=== PATIENT | female | born 1950 | race Caucasian/White ===

== ENCOUNTER 2016-07-26 14:52 | Emergency (ER) | payer MEDICARE ==
[~2016-07-26 14:52] MED LIST: CYCLOBENZAPRINE10 MG PO; CYMBALTA30 MG PO; HYDROCODONE-APA1 TAB PO; PAXIL20 MG PO
[2016-07-26 15:46] LABS: BASOPHILS 0.9 % (0.0-2.0); EOSINOPHILS 3.7 % (0-7); HEMATOCRIT 46.7 % (36.0-48.0); IMMATURE GRANULOCYTES 0.2 % (0-5); MCH 34.2 pg (26.0-34.0); MCHC 34.3 g/dL (31.0-37.0); MCV 99.8 fL (80.0-100.0); MONOCYTES 5.7 % (2-11); NEUTROPHILS 52.5 % (40-80); RBC 4.68 10x6/uL (4.00-5.40); RDW 13.8 % (11.5-14.5); WBC 8.1 10x3/uL (4.8-10.8)
[2016-07-26 16:06] LABS: PLATELET COUNT 245 10x3/uL (130-400)
[2016-07-26 16:26] LABS: HCG SERUM NEGATIVE (NEGATIVE)
[2016-07-26 16:31] LABS: ALBUMIN 3.9 g/dL (3.4-5.0); ANION GAP 19.2 mmol/L (8-16); BILIRUBIN - TOTAL 0.45 mg/dL (0.2-1.3); CALCIUM 9.4 mg/dL (8.5-10.1); CARBON DIOXIDE 21.8 mmol/L (21.0-32.0); PROTEIN - SERUM 6.8 g/dL (6.4-8.2)
== END 2016-07-26 17:11 | disposition left against medical advice (07) ==
LOC: D.ER 14:52
PROVIDERS: Emergency Medicine
DX: F10.129 Alcohol abuse with intoxication, unspecified (principal); T14.8 Other injury of unspecified body region; S02.2XXA Fracture of nasal bones, initial encounter for closed fracture; W19.XXXA Unspecified fall, initial encounter; Y93.89 Activity, other specified; Y92.89 Other specified places as the place of occurrence of the external cause; F17.200 Nicotine dependence, unspecified, uncomplicated

== ENCOUNTER 2016-07-26 17:43 | Emergency (ER) | payer MEDICARE ==
[2016-07-26 18:23] LABS: BASOPHILS 0.8 % (0.0-2.0); EOSINOPHILS 2.9 % (0-7); HEMATOCRIT 45.4 % (36.0-48.0); HEMOGLOBIN 15.4 g/dL (12-16); IMMATURE GRANULOCYTES 0.2 % (0-5); MCH 33.8 pg (26.0-34.0); MCHC 33.9 g/dL (31.0-37.0); MCV 99.6 fL (80.0-100.0); MEAN PLATELET VOLUME 9.9 fL (7.4-10.4); MONOCYTES 5.9 % (2-11); NEUTROPHILS 61.2 % (40-80); PLATELET COUNT 210 10x3/uL (130-400); RBC 4.56 10x6/uL (4.00-5.40); RDW 13.8 % (11.5-14.5); WBC 8.9 10x3/uL (4.8-10.8)
[2016-07-26 18:42] LABS: INR 1.02 (0.85-1.17); PROTIME 13.2 SECONDS (11.6-15.0)
[2016-07-26 18:54] LABS: ALBUMIN 3.7 g/dL (3.4-5.0); ANION GAP 19.1 mmol/L (8-16); BILIRUBIN - TOTAL 0.53 mg/dL (0.2-1.3); CARBON DIOXIDE 21.8 mmol/L (21.0-32.0); CREATININE - SERUM 0.9 mg/dL (0.6-1.3); POTASSIUM - SERUM 3.9 mmol/L (3.5-5.1); PROTEIN - SERUM 6.5 g/dL (6.4-8.2)
== END 2016-07-26 21:30 | disposition home or self-care (01) ==
LOC: D.ER 17:43
PROVIDERS: Emergency Medicine
DX: F10.129 Alcohol abuse with intoxication, unspecified (principal); F17.200 Nicotine dependence, unspecified, uncomplicated; S02.2XXA Fracture of nasal bones, initial encounter for closed fracture; W19.XXXA Unspecified fall, initial encounter

== ENCOUNTER 2017-11-11 20:07 | Emergency (ER) | payer MEDICARE | END 2017-11-11 21:09 | disposition home or self-care (01) | LOC: D.ER 20:07 | DX: S83.92XA Sprain of unspecified site of left knee, initial encounter (principal); W19.XXXA Unspecified fall, initial encounter; Y93.89 Activity, other specified; Y92.019 Unspecified place in single-family (private) house as the place of occurrence of the external cause; J44.9 Chronic obstructive pulmonary disease, unspecified; F17.200 Nicotine dependence, unspecified, uncomplicated ==